=== PATIENT | male | born 1990 | race Caucasian/White ===

== ENCOUNTER 2025-02-07 20:11 | Emergency (ER) | payer BC ==
[~2025-02-07] VITALS: Ht 188 cm; Wt 81.6 kg
[2025-02-07 23:09] VITALS: BP 132/77; TEMP 98.6; O2SAT 100
[2025-02-07] MEDS ORDERED: TDAP [DIPH/PERTUSSIS/TET] 0.5 ML VIAL IM ONE (23:30)
[2025-02-07] MEDS: TDAP [DIPH/PERTUSSIS/TET] 0.5 ML VIAL IM ONE (23:34)
== END 2025-02-08 00:08 | disposition home or self-care (01) ==
LOC: ER 20:20
DX: S61.210A Laceration without foreign body of right index finger without damage to nail, initial encounter (principal); Z60.2 Problems related to living alone; W23.1XXA Caught, crushed, jammed, or pinched between stationary objects, initial encounter; Y93.89 Activity, other specified; Y92.89 Other specified places as the place of occurrence of the external cause; Y99.8 Other external cause status
CPT/HCPCS: 90715